=== PATIENT | female | born 1945 | race Caucasian/White ===

== ENCOUNTER → 2016-07-07 13:08 | Outpatient (CLI) | payer MEDICARE ==
[~2016-07-07 13:08] MED LIST: HYDROCODON-ACE1 EAC7 PO; PAXIL20 MG PO; PEPCID20 MG PO; ULTRAM50 MG PO; XANAX0.5 MG PO
[2016-08-13 06:42] VITALS: BMI 19.8
== END | disposition home or self-care (01) ==
LOC: D.MRI 13:08
DX: R22.1 Localized swelling, mass and lump, neck (principal)

== ENCOUNTER 2016-08-13 05:57 | Day surgery (SDC) | payer MEDICARE ==
[~2016-08-13] VITALS: Ht 172.7 cm; Wt 59.0 kg
[~2016-08-13 05:57] MED LIST changes: -HYDROCODON-ACE1 EAC7 PO
[2016-08-13 06:42] VITALS: BP 122/55; Ht 172.7 cm; Wt 59.0 kg
[2016-08-13 07:14] LABS: BASOPHILS 0 % (0.0-2.0); EOSINOPHILS 4.5 % (0-7); HEMATOCRIT 35.9 % (36.0-48.0); HEMOGLOBIN 11.6 g/dL (12-16); MCH 30.2 pg (26.0-34.0); MCHC 32.3 g/dL (31.0-37.0); MCV 93.5 fL (80.0-100.0); MEAN PLATELET VOLUME 10.7 fL (7.4-10.4); MONOCYTES 19.2 % (2-11); NEUTROPHILS 52.3 % (40-80); PLATELET COUNT 174 10x3/uL (130-400); RBC 3.84 10x6/uL (4.00-5.40); RDW 13.1 % (11.5-14.5); WBC 3.3 10x3/uL (4.8-10.8)
[2016-08-13 07:33] LABS: ANION GAP 10.6 mmol/L (8-16); CALCIUM 8.7 mg/dL (8.5-10.1); CARBON DIOXIDE 30.1 mmol/L (21.0-32.0); CREATININE - SERUM 0.9 mg/dL (0.6-1.3); POTASSIUM - SERUM 3.7 mmol/L (3.5-5.1)
[2016-08-13] MEDS ORDERED: HYDROCODON-ACE1 EAC7 PO (08:48)
--- NOTE | 2016-08-13 08:59 | NUR ---
STERI-STRIPS TO SITE
--- NOTE | 2016-08-13 11:08 | NUR ---
1045--IV DC'D, PT UP TO DRESS AT THIS TIME. MARLENA FREITAS 1105--DISCHARGE INSTRUCTIONS GIVEN, PT VERBALIZES UNDERSTANDING. PT OFF UNIT VIA WC. MARLENA FREITAS
--- NOTE | 2016-09-03 13:21 | OP ---
PATIENT NAME: SNEHA CASTANEDA MEDICAL RECORD: [id number] :47 LOCATION:[facility] ADMISSION DATE: SURGEON: ANGELITO MOJICA MD DATE OF OPERATION: 08/13/2016 PREOPERATIVE DIAGNOSES: Left posterior neck lipoma. POSTOPERATIVE DIAGNOSIS: Left posterior neck lipoma. PROCEDURE: Excision of 4 cm left posterior neck lipoma. SURGEON: Angelito Mojica MD. REPORT OF PROCEDURE: The patient was placed in the right lateral decubitus position and the neck was prepped and draped in sterile fashion. A transverse incision was made overlying the lipoma. Once we cut through the subcutaneous tissue, the lipoma began the bulge out of the wound. I was able to squeeze down on the wound and the lipoma eviscerated. Then, we were able to free up the lipoma from its underlying attachments. At this point, we treated any areas in the lipoma bed with electrocautery to stop any bleeding. We irrigated out the wound with normal saline and once again assured there was no sign of any active bleeding. The subcutaneous tissues were reapproximated with interrupted 3-0 Vicryls and the skin was closed with running subcutaneous 5-0 Monocryl. A 10 mL of 0.25% Marcaine with epinephrine were infused into the surrounding tissues and the wound was dressed appropriately. COMPLICATIONS: None. CONDITION: Stable. ANESTHESIA: General endotracheal and local. BLOOD LOSS: Minimal. TRANSINT:[id number] Voice Confirmation ID: [id number] DOCUMENT ID: [id number] ANGELITO MOJICA MD at 1321 CC: STEFANIA MARTINEZ MD [id number] DICTATION DATE: 08/13/16 0841 COMMERCIAL COLLECTOR: 08/13/16 1247 [facility] 08/13/16 [place] [id number]
== END 2016-08-13 11:05 | disposition home or self-care (01) ==
LOC: D.OPS 05:57 → D.PAN 07:30 → D.OPS 11:05 → D.PAN 12:00
PROVIDERS: Surgery
DX: D17.0 Benign lipomatous neoplasm of skin and subcutaneous tissue of head, face and neck (principal)

== ENCOUNTER → 2016-10-18 08:11 | Outpatient (CLI) | payer MEDICARE ==
[2016-08-13 06:42] VITALS: BMI 19.8
[~2016-10-18 08:11] MED LIST changes: +HYDROCODON-ACE1 EAC7 PO
[2016-10-18 09:05] LABS: ALBUMIN 3.7 g/dL (3.4-5.0); BILIRUBIN - DIRECT 0.14 mg/dL (0.00-0.30); BILIRUBIN - INDIRECT 0.6 mg/dL (0.00-1.00); BILIRUBIN - TOTAL 0.74 mg/dL (0.2-1.3); PROTEIN - SERUM 7.1 g/dL (6.4-8.2)
== END | disposition home or self-care (01) ==
LOC: D.LAB 08:11 → D.US 09:00 → D.NM 09:30
PROVIDERS: Internal Medicine Gastroenterology
DX: R10.9 Unspecified abdominal pain (principal); R11.0 Nausea

== ENCOUNTER 2016-11-12 05:05 | Day surgery (SDC) | payer MEDICARE ==
[2016-11-11 11:32] LABS: BASOPHILS 0.3 % (0-2); EOSINOPHILS 3.2 % (0-7); HEMATOCRIT 39.3 % (36.0-48.0); HEMOGLOBIN 12.5 g/dL (12-16); LYMPHOCYTES 30.3 % (15-50); MCH 30.2 pg (26.0-34.0); MCHC 31.8 g/dL (31.0-37.0); MCV 94.9 fL (80.0-100.0); MEAN PLATELET VOLUME 10.2 fL (7.4-10.4); MONOCYTES 12.1 % (2-11); NEUTROPHILS 54.1 % (40-80); RBC 4.14 10x6/uL (4.00-5.40); RDW 12.8 % (11.5-14.5); WBC 3.5 10x3/uL (4.8-10.8)
[2016-11-11 11:38] LABS: PLATELET COUNT 214 10x3/uL (130-400)
[2016-11-11 11:51] LABS: ANION GAP 10.5 mmol/L (8-16); CALCIUM 9.1 mg/dL (8.5-10.1); CARBON DIOXIDE 30.3 mmol/L (21.0-32.0); CREATININE - SERUM 1.1 mg/dL (0.6-1.3); POTASSIUM - SERUM 3.8 mmol/L (3.5-5.1)
[~2016-11-12] VITALS: Ht 172.7 cm; Wt 63.0 kg
--- NOTE | ~2016-11-12 | OP ---
PATIENT NAME: SNEHA CASTANEDA MEDICAL RECORD: [id number] :47 LOCATION:D.[facility] ADMISSION DATE: SURGEON: ANGELITO MOJICA MD DATE OF OPERATION: 11/12/2016 PREOPERATIVE DIAGNOSES: 1. Biliary dyskinesia. 2. Peptic ulcer disease. POSTOPERATIVE DIAGNOSES: 1. Biliary dyskinesia. 2. Peptic ulcer disease. PROCEDURE: Laparoscopic cholecystectomy. SURGEON: Angelito Mojica MD. REPORT OF PROCEDURE: The patient's abdomen was prepped and draped in sterile fashion. A cutdown was made on the superior aspect of the umbilicus, 0 Vicryls were placed in the fascia bilaterally and the fascia was incised with 15-blade. I then bluntly entered the peritoneal cavity and placed a 12-mm Alyx port. Under direct visualization, a 5-mm trocar was placed in the epigastrium and 2 more 5-mm trocars were placed in the right subcostal region. The gallbladder was grasped and elevated. There is no sign of any inflammatory changes. The cystic artery and cystic duct were dissected free and these were clipped proximally and distally and ligated in standard fashion. The gallbladder was then taken off the liver bed using electrocautery and then placed into the right upper quadrant. Any bleeding from the liver bed was treated with electrocautery. We irrigated out the right upper quadrant and assured there was no sign of any bleeding or bile leakage. At this point, the ports and insufflation were then removed and the gallbladder was taken out through the umbilicus. The umbilical fascia was closed with interrupted 0 Vicryls times 3. The wounds were then irrigated out with normal saline, infused with 10 mL of 0.25% Marcaine with epinephrine. The skin incisions were all closed with subcutaneous 5-0 Monocryl and dressed appropriately. COMPLICATIONS: None. CONDITION: Stable. ANESTHESIA: General endotracheal and local. BLOOD LOSS: Minimal. TRANSINT:[id number] Voice Confirmation ID: [id number] DOCUMENT ID: [id number] ANGELITO MOJICA MD CC: STEFANIA MARTINEZ MD [id number] DICTATION DATE: 11/12/16 1059 MILL TENDER SECOND OPERATOR: 11/12/162022 [facility] 11/12/16 [place] [address]
[2016-11-12 06:01] VITALS: BP 127/75; Ht 172.7 cm; Wt 63.0 kg
[2016-11-12] MEDS ORDERED: HYDROCODONE-APA1 TAB PO (10:55)
--- NOTE | 2016-11-12 12:46 | NUR ---
ASKING FOR HOT TEA
--- NOTE | 2016-11-12 12:57 | NUR ---
IV DC WITH CATHER TIP INTACT
== END 2016-11-12 13:15 | disposition home or self-care (01) ==
LOC: D.OPS 05:05 → D.PAN 07:30 → D.OPS 07:30
PROVIDERS: Surgery
DX: K82.8 Other specified diseases of gallbladder (principal); K27.9 Peptic ulcer, site unspecified, unspecified as acute or chronic, without hemorrhage or perforation

== ENCOUNTER 2016-11-13 12:38 | Emergency (ER) | payer MEDICARE ==
[2016-11-12 06:01] VITALS: BMI 21.1
[~2016-11-13 12:38] MED LIST changes: +HYDROCODONE-APA1 TAB PO
== END 2016-11-13 13:53 | disposition home or self-care (01) ==
LOC: D.ER 12:38
DX: J02.9 Acute pharyngitis, unspecified (principal); R50.9 Fever, unspecified; K21.9 Gastro-esophageal reflux disease without esophagitis

== ENCOUNTER 2018-08-12 09:09 | Emergency (ER) | payer MEDICARE ==
[~2018-08-12] VITALS: Ht 172.7 cm; Wt 64.5 kg
[2018-08-12 09:13] VITALS: Ht 172.7 cm; Wt 64.5 kg
[2018-08-12] MEDS ORDERED: KEFLEX500 MG PO (09:35)
[2018-08-12] MEDS ORDERED: FLORASTOR250 MG PO (09:35)
[2018-08-12] MEDS ORDERED: SULFAMETHOXAZOL1 TA3 PO (09:35)
[2018-08-12 09:43] VITALS: BP 132/70
== END 2018-08-12 09:44 | disposition home or self-care (01) ==
LOC: D.ER 09:09
DX: L03.114 Cellulitis of left upper limb (principal); S51.852A Open bite of left forearm, initial encounter; W55.01XA Bitten by cat, initial encounter; Y93.89 Activity, other specified; Y92.019 Unspecified place in single-family (private) house as the place of occurrence of the external cause

== ENCOUNTER → 2019-10-18 12:32 | Outpatient (CLI) | payer MEDICARE ==
[2018-08-12 09:13] VITALS: BMI 21.6
[~2019-10-18 12:32] MED LIST changes: +FLORASTOR250 MG PO; +KEFLEX500 MG PO; +SULFAMETHOXAZOL1 TA3 PO
--- NOTE | 2019-10-21 08:56 | EC ---
PATIENT:SNEHA CASTANEDA DATE OF SERVICE: 10/18/19 SEX: F MEDICAL RECORD: [id number] DATE OF : 47 LOCATION:D.[facility] AGE OF PATIENT: 74 ADMISSION DATE: 10/18/19 REFERRING PHYSICIAN: INTERPRETING PHYSICIAN: THEA WHITMAN MD ECHOCARDIOGRAM REPORT ECHO CHARGES 4 ECHO COMPLETE Date: 10/18/19 CLINICAL DIAGNOSIS: HEART MURMUR ECHOCARDIOGRAPHIC MEASUREMENTS (adult normal given) AC root (d.<3.7cm) 3.3 cm LV Septum d (<1.2 cm> 1.4 cm Valve Excursion 1.9 cm LV Septum (systole) 1.7 cm Left Atria (s.<4.0cm> 4.1 cm LVPW d(<1.2cm) 1.3 cm RV (d.<2.3cm) 2.8 cm LVPW (sytole) 1.5 cm LV diastole(<5.6CM) 4.5 cm MV E-F(>70mm/sec) cm LV systole 3.1 cm LVOT Diameter 2.2 cm MV exc.(>10mm) 1.9 cm Est.ejection fraction (50-75%) % DOPPLER: LVIT cm/sec A 78.0 cm/sec E 109 cm/sec LA cm/sec RVSP 40 mmHg LVOT 84 cm/sec AOP1/2T 605 m/s Asc. Ao 110 cm/sec RVOT 61 cm/sec RA cm/sec PA 84 cm/sec AV Gradient Peak 4.80 mmHg AV Mean 2.80 mmHg AV Area 3.4 cm MV Gradient Peak 7.94 mmHg MV Mean 3.34 mmHg MV Area cm COMMENTS: [employer]: 2 DOTTIE HACKETT Supervisor Graphite: 3 Dr. Dsouza TAPE# PACS Pericardial Effusion N DATE OF SERVICE: Adequate 2D, color flow imaging, spectral Doppler, and M-Mode. Mild LVH. LV internal dimensions are normal. Wall motion is normal. EF is greater than or equal to 55%. Aortic valve is tricuspid. No evidence of stenosis by Doppler interrogation. There is mild AI by color flow imaging. Left atrium upper limits of normal to mildly dilated at 4.1 cm. Mitral valve shows no prolapse. Trace MR. Right-sided chambers are grossly normal. Mild TR. ECHOCARDIOGRAM REPORT [id number] SNEHA CASTANEDA TRANSINT:[id number] Voice Confirmation ID: [id number] DOCUMENT ID: [id number] THEA WHITMAN MD at 0856 CC: [id number] DICTATION DATE: 10/18/19 141 SPECIAL EDUCATION CASE MANAGER: 10/18/191915 [facility] CLI 10/18/19 [place] [id number] [place] [id number]
--- NOTE | 2019-10-22 08:58 | ST ---
PATIENT:SNEHA CASTANEDA MEDICAL RECORD: [id number] SEX: F LOCATION:[facility] ORDER #: ADMISSION DATE: 10/18/19 AGE OF PATIENT: 74 REFERRING PHYSICIAN: INTERPRETING PHYSICIAN: THEA WHITMAN MD DATE OF SERVICE: 10/18/2019 PROCEDURE: Treadmill stress test. Baseline ECG is normal. Exercise for 10 minutes on Tariq protocol. Maximum heart rate 138 beats per minute, greater than 85% of max predicted. No ECG changes for ischemia. No symptoms of ischemia. Normal blood pressure response to exercise. No arrhythmias noted. Good exercise tolerance for age. TRANSINT:[id number] Voice Confirmation ID: [id number] DOCUMENT ID: [id number] THEA WHITMAN MD at 0858 CC: [id number] DICTATION DATE: 10/21/19 1013 HOUSING GRANT ANALYST: 10/22/19 0410 [facility] CLI 10/18/19 [place] [id number] [place] [address]
== END | disposition home or self-care (01) ==
LOC: D.HCCECHO 12:32
PROVIDERS: ATTEND Internal Medicine Interventional Cardiology
DX: R07.9 Chest pain, unspecified (principal); R01.1 Cardiac murmur, unspecified